=== PATIENT | female | born 1970 | race Caucasian/White ===

== ENCOUNTER 2023-11-27 03:03 | Emergency (ER) | payer OTHER ==
[~2023-11-27] VITALS: Ht 175.3 cm; Wt 95.5 kg
[2023-11-27 03:09] VITALS: TEMP 97.8
[2023-11-27] MEDS ORDERED: fentaNYL 50 MCG/ML 2 ML VIAL IV ONE (03:15)
[2023-11-27 03:25] LABS: BASO % 0.2 % (0.0-2.0); EOS # 0.1 K/mm3 (0.0-0.7); EOS % 0.9 % (0.0-4.0); GRAN # 3.8 K/mm3 (1.4-6.5); GRAN % 40.8 % (42.2-75.2); HEMATOCRIT 50.4 % (37.0-47.0); LYMPH # 4.9 K/mm3 (1.2-3.4); MEAN CELL VOLUME 83 fl (80.0-100.0); MEAN CORPUSCULAR HEMOGLOBIN 28 pg (27-31); MEAN CORPUSCULAR HGB CONC 34 g/dl (33.0-37.0); MEAN PLATELET VOLUME 9.7 fl (7.4-10.4); MONO # 0.3 K/mm3 (0.1-0.6); MONO % 3.7 % (1.7-9.3); PLATELET COUNT 277 K/mm3 (130-400); RED BLOOD COUNT 6.07 M/mm3 (4.10-5.30); REDCELL DISTRIBUTION WIDTH-CV 13.2 % (11.5-14.5)
[2023-11-27] MEDS ORDERED: Ondansetron 4 MG/2 ML VIAL IV ONE (03:30)
[2023-11-27 03:32] LABS: PROTHROMBIN TIME 10.9 SECONDS (9.7-12.8)
[2023-11-27 03:34] LABS: PARTIAL THROMBOPLASTIN TIME 28.6 SECONDS (26.0-37.0)
[2023-11-27 03:57] LABS: ALANINE AMINOTRANSFERASE 26 U/L (0-55); ALBUMIN 4.2 g/dL (3.5-5.0); ALKALINE PHOSPHATASE 85 U/L (40-150); ANION GAP 15 mmol/L (7-16); AST,SGOT 16 U/L (5-34); BILIRUBIN,TOTAL 0.4 mg/dL (0.2-1.2); BLOOD UREA NITROGEN 19 mg/dL (10-20); CALCIUM 10.2 mg/dL (8.4-10.2); CHLORIDE 107 mEq/L (98-107); CREATININE, serum 0.93 mg/dL (0.57-1.11); GLUCOSE 180 mg/dL (70-99); LIPASE 42 U/L (8-78); POTASSIUM 3.5 mEq/L (3.5-4.5); SODIUM 141 mEq/L (136-145); TOTAL PROTEIN 7.7 g/dl (6.2-8.1)
[2023-11-27 04:04] LABS: TROPONIN-I < 0.010 ng/mL (0.00-0.033)
[2023-11-27] MEDS ORDERED: LR 1,000 ML IV ONE (04:15)
[2023-11-27] MEDS ORDERED: Iohexol 300 - 100 ML VIAL IV ONE (04:48)
[2023-11-27] MEDS ORDERED: NS 50 ML IV ONE (04:53)
[2023-11-27] MEDS ORDERED: ZOFRAN ODT4 MG PO (05:13)
[2023-11-27] MEDS ORDERED: Ketorolac 15 MG/ML VIAL IV ONE (05:30)
[2023-11-27 05:50] LABS: URINE APPEARANCE CLEAR (CLEAR/HAZY); URINE BLOOD TRACE (NEGATIVE); URINE COLOR YELLOW (YELLOW); URINE GLUCOSE NEGATIVE (NEGATIVE); URINE KETONE NEGATIVE (NEGATIVE); URINE NITRATE NEGATIVE (NEGATIVE); URINE PROTEIN(semi-quant) TRACE (NEGATIVE); URINE UROBILINOGEN 0.2 E.U/dL (0.2-1.0)
[2023-11-27 05:54] LABS: COLLECTION METHOD CLEAN CATCH
[2023-11-27 06:15] VITALS: BP 121/72; PULSE 78
== END 2023-11-27 06:15 | disposition home or self-care (01) ==
LOC: COL.ER 03:03
PROVIDERS: Emergency Medicine
DX: K52.9 Noninfective gastroenteritis and colitis, unspecified (principal); Z91.040 Latex allergy status
CPT/HCPCS: J1885; J2405; J3010; J7120; Q9967